=== PATIENT | female | born 1985 | race Hispanic/Latino ===

== ENCOUNTER 2023-07-09 12:59 | Emergency (ER) | payer MEDICAID, OTHER ==
[2023-07-09] MEDS ORDERED: Ondansetron ODT 4 MG TAB ONE (14:45)
== END 2023-07-09 15:15 | disposition home or self-care (01) ==
LOC: ERS 12:59
DX: S06.0X0A Concussion without loss of consciousness, initial encounter (principal); F17.290 Nicotine dependence, other tobacco product, uncomplicated; W22.8XXA Striking against or struck by other objects, initial encounter
CPT/HCPCS: 70450; Q0162